=== PATIENT | male | born 1990 | race Hispanic/Latino ===

== ENCOUNTER 2017-07-04 04:41 | Emergency (ER) | payer BC ==
[2017-07-04 04:48] VITALS: TEMP 97.2; BMI 24.9
[2017-07-04] MEDS ORDERED: Tdap Vaccine 0.5 ml Vial (10-64 yrs) IM ONE ×2 (05:04→05:10)
[2017-07-04 05:31] LABS: BASO # 0.1 K/uL (0.0-0.2); BASO % 1.3 % (0.0-2.0); EOS # 0.4 K/uL (0.0-0.7); EOS % 6.4 % (0.0-4.0); HEMOGLOBIN 14.4 g/dL (12.0-18.0); LYMPH # 2.6 K/uL (1.0-4.3); LYMPH % 39.7 % (20.0-40.0); MEAN CELL VOLUME 95.4 fl (80.0-94.0); MEAN CORPUSCULAR HEMOGLOBIN 31.8 pg (27.0-31.0); MEAN CORPUSCULAR HGB CONC 33.4 g/dL (33.0-37.0); MEAN PLATELET VOLUME 7.4 fl (7.2-11.7); MONO # 0.5 K/uL (0.0-0.8); NEUT % 44.6 % (50.0-75.0); NRBC % 0.1 % (0.0-0.0); RBC 4.52 Mil/uL (4.40-5.90); RED CELL DISTRIBUTION WIDTH 14.8 % (11.5-14.5); WHITE BLOOD COUNT 6.6 K/uL (4.8-10.8)
[2017-07-04 05:47] LABS: ALB/GLOB RATIO 1.6 (1.0-2.1); ALBUMIN 4.2 g/dL (3.5-5.0); ALT/SGPT 44 U/L (21-72); AST/SGOT 46 U/L (17-59); BLOOD UREA NITROGEN 14 mg/dl (9-20); GFR AFRICAN-AMERICAN > 60; GFR NON-AFRICAN AMERICAN > 60
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
[2017-07-04 07:40] VITALS: O2SAT 96
--- NOTE | 2017-07-04 10:34 | ED PDOC ---
- Laboratory Results Result Diagrams: 07/04/17 05:23 07/04/17 05:23 - ECG O2 Sat by Pulse Oximetry: 96 - Progress Re-evaluation Time: 10:32 Condition: Improved (Awake alert oriented x 3 No focal neuro deficits) Disposition - Clinical Impression Clinical Impression: Alcohol abuse with intoxication, Leg abrasion, Tetanus toxoid vaccination administered at current visit - POA Present On Arrival: None - Disposition Referrals: [facility] [Outside] Disposition: Routine/Home Disposition Time: 10:33 Condition: FAIR Instructions: Alcohol Abuse and Alcoholism (DC) Forms: [facility] ([place]rainian)
[2017-07-04 11:02] VITALS: BP 118/64; PULSE 75; RESP 20
== END 2017-07-04 10:41 | disposition home or self-care (01) ==
LOC: H.ER 04:41
DX: F10.129 Alcohol abuse with intoxication, unspecified (principal); S80.811A Abrasion, right lower leg, initial encounter; W26.8XXA Contact with other sharp object(s), not elsewhere classified, initial encounter; Y92.410 Unspecified street and highway as the place of occurrence of the external cause
CPT/HCPCS: 80053; 85025; 90471; 90715; 99283; G0480